=== PATIENT | female | born 1965 | race Caucasian/White ===

== ENCOUNTER → 2018-03-09 | Outpatient (CLI) | payer MEDICARE ==
--- NOTE | 2018-03-09 08:13 | CT ---
EXAMINATION TYPE: CT sinus wo con DATE OF EXAM: 03/09/2018 COMPARISON: CT brain March 12, 2013 HISTORY: Chronic sinusitis per order. Headache with vision changes and change in memory for [address] patient[address] DLP: 609.40 mGycm. Automated Exposure Control for Dose Reduction was Utilized. TECHNIQUE: CT scan of the sinuses is performed without contrast, axial images are obtained, coronal r eformatted images are also reviewed. FINDINGS: There is mild mucosal thickening inferiorly in both maxillary sinuses, right greater than l eft. There is mild mucosal thickening with patchy fluid in the left sphenoid sinus. There is mild muc osal thickening in the bilateral ethmoid sinuses. There is mild mucosal thickening in the bilateral f rontal sinuses. The ostiomeatal complex is patent bilaterally on the coronal images. Nasal septum is deviated to left of midline. The globes are intact bilaterally. Visualized portion of brain parenchyma is unremarkable. Persisten t anterior metopic suture incidentally noted. IMPRESSION: Mild chronic paranasal sinus disease with mild acute patchy left sphenoid sinusitis.
== END | disposition home or self-care (01) ==
LOC: RADCTMAIN 07:06
PROVIDERS: ATTEND Otolaryngology
DX: J32.3 Chronic sphenoidal sinusitis (principal); J32.9 Chronic sinusitis, unspecified
CPT/HCPCS: 70486

== ENCOUNTER → 2018-07-21 | Outpatient (CLI) | payer MEDICARE ==
--- NOTE | 2018-07-21 13:55 | US ---
EXAMINATION TYPE: US abdomen limited DATE OF EXAM: 07/21/2018 COMPARISON: CLINICAL HISTORY: R10.11 rt upper quadrant pain. RUQ pain, NPO EXAM MEASUREMENTS: Liver Length: 14.0 cm Gallbladder Wall: 0.2 cm CBD: 0.5 cm Right Kidney: 11.4 x 4.9 x 5.7 cm Pancreas: Appears echogenic in appearance Liver: wnl Gallbladder: wnl Evidence for sonographic Choudhary's sign: neg CBD: wnl Right Kidney: Medial anechoic lesion at hilum - 1.8 x 1.1 cm IMPRESSION: 1. Right renal cyst.
== END | disposition home or self-care (01) ==
LOC: RADUSWWP 13:21
PROVIDERS: ATTEND Family Medicine
DX: N28.1 Cyst of kidney, acquired (principal)
CPT/HCPCS: 76705

== ENCOUNTER → 2019-01-26 | Outpatient (CLI) | payer MEDICARE ==
--- NOTE | 2019-01-26 16:38 | US ---
EXAMINATION TYPE: US thyroid st tissue head/neck DATE OF EXAM: 01/26/2019 COMPARISON: ultrasound 07/05/2012 CLINICAL HISTORY: E04.2 Nontoxic multinodular goiter. GLAND SIZE: Right Lobe: 4.1 X 1.1 X 1.4 cm Overall Parenchyma: homogenous Left Lobe: 3.9 x 0.8 x 1.4 cm Overall Parenchyma: homogeneous Isthmus Thickness: 0.2 cm NODULES RIGHT: # of nodules measured on right: 4 1. 0.6 X 0.4 x 0.7 cm solid nodule at the ;ower pole with well-defined margins; calcification. Thi s nodule is wider than tall and shows intranodular vascularity. Prior size: 1.0 cm 2. 1.4 X 1.1 x 0.7 cm mixed nodule at the mid pole with well-defined margins; . This nodule is wide r than tall and shows intranodular vascularity. Prior size: 2.1 x 1.0 x 1.9 cm 3. 0.6 X 0.4 x 0.7 cm mixed nodule at the upper pole with well-defined margins; . This nodule is wi molly than tall and shows no intranodular vascularity. Prior size: no prior 4. 0.2 X 0.2 x 0.3 cm mixed nodule at the upper pole with well-defined margins; . This nodule is wi molly than tall and shows no intranodular vascularity. Prior size: no prior LEFT: # of nodules measured on left: 1. 0.6 X 0.6 x 0.3 cm mixed nodule at the lower pole with well-defined margins; . This nodule is w ider than tall and shows no intranodular vascularity. Prior size: no prior 2. 0.5 X 0.3 x 0.2 cm mixed nodule at the upper pole with well defined margins; . This nodule is w ider than tall and shows no intranodular vascularity. Prior size: no prior ISTHMUS: # of nodules measured in the isthmus: 0 Bilateral neck scanned, no evidence of lymphadenopathy. IMPRESSION: Dominant nodule in the right has decreased side, the cystic component has resolved, although a solid formation.
== END | disposition home or self-care (01) ==
LOC: RADUSWWP 14:45
PROVIDERS: ATTEND Family Medicine
DX: E04.2 Nontoxic multinodular goiter (principal)
CPT/HCPCS: 76536

== ENCOUNTER 2019-03-18 10:03 | Emergency (ER) | payer MEDICARE ==
[2019-03-18 10:22] VITALS: RESP 18
[2019-03-18] MEDS ORDERED: SODIUM CHLORIDE 0.9% 1,000 ML IV STA ×2 (10:45)
[2019-03-18] MEDS ORDERED: methylPREDNISolone SOD SUCCI 125 MG/2 ML VIAL IV STA (10:45)
[2019-03-18] MEDS ORDERED: IPRATROPIUM-ALBUTEROL 3 ML NEB INHALATION STA (10:45)
--- NOTE | 2019-03-18 10:49 | ED ---
URI HPI - General Chief Complaint: Upper Respiratory Infection Stated Complaint: chest congestion & leg pain Time Seen by Provider: 03/18/19 10:26 Source: patient, RN notes reviewed, old records reviewed, Caregiver Mode of arrival: ambulatory Limitations: no limitations - History of Present Illness Initial Comments: Patient is a 54-year-old female, she presents today for concern for cough congestion worsening of the past few days. She reports yesterday she started to cough up some bloody sputum. She ALSO COMPLAINS OF SOME HEENT WITHIN HER RIGHT LEG. SHE REPORTS THE PAST MONTH SHE'S BEEN HAVING SHARP SHOOTING PAIN FROM HER BUTTOCKS TO BEHIND HER LOWER LEG. SHE DENIES ANY HISTORY OF BLOOD CLOTS. HISTORY OF INTERMITTENT SMOKING FOR THE PAST FEW MONTHS. - Related Data Home Medications Medication Instructions Recorded Confirmed Celecoxib [CeleBREX] 200 mg PO BID 09/14/13 07/18/14 Cevimeline [Evoxac] 30 mg PO TID 09/14/13 07/18/14 Cyclobenzaprine [Flexeril] 10 mg PO HS 09/14/13 07/18/14 DULoxetine HCL [Cymbalta] 60 mg PO HS 09/14/13 07/18/14 Ergocalciferol [Vitamin D2 1 tab PO DIRECTED 09/14/13 07/18/14 (DRISDOL)] Folic Acid 1 mg PO DAILY 09/14/13 07/18/14 Gabapentin 600 mg PO HS 09/14/13 07/18/14 Gabapentin [Neurontin] 400 mg PO BID 09/14/13 07/18/14 Hydroxychloroquine Sulfate 200 mg PO BID 09/14/13 07/18/14 [Plaquenil] Methotrexate Sodium [Methotrexate] 20 mg PO Q7D 09/14/13 07/18/14 SUMAtriptan SUCCINATE [Imitrex] 100 mg PO DIRECTED PRN 09/14/13 07/18/14 SUMAtriptan SUCCINATE [Sumatriptan 1 dose INJ DAILY PRN 09/14/13 07/18/14 Succinate] Topiramate [Topamax] 100 mg PO BID 09/14/13 07/18/14 cycloSPORINE 0.05% OPHTH SOLN 1 applicator BOTH EYES Q12H 09/14/13 07/18/14 [Restasis 0.05% Ophth Soln] Linaclotide [Linzess] 290 mcg PO DAILY 07/18/14 07/18/14 Previous Rx's Medication Instructions Recorded Albuterol Inhaler [Ventolin Hfa 1 - 2 puff INHALATION RT-Q6H PRN 03/18/19 Inhaler] #1 inhaler Azithromycin [Zithromax Z-pack] 250 mg PO DIRECTED #6 tab 03/18/19 predniSONE 10 mg PO DAILY #15 tab 03/18/19 Allergies Allergy/AdvReac Type Severity Reaction Status Date / Time No Known Allergies Allergy Verified 03/18/19 10:18 Review of Systems ROS Statement: Those systems with pertinent positive or pertinent negative responses have been documented in the HPI. ROS Other: All systems not noted in ROS Statement are negative. Past Medical History Past Medical History: Fibromyalgia, GERD/Reflux, Osteoarthritis (OA) Additional Past Medical History / Comment(s): HX FIBROMYALGIA, SJOGREN'S, MIGRAINES; LUPUS History of Any Multi-Drug Resistant Organisms: None Reported Past Surgical History: Appendectomy, Hysterectomy, Orthopedic Surgery Additional Past Surgical History / Comment(s): CTR-RT WRIST, TUMOR REMOVED RT PARATOID GLAND , Past Anesthesia/Blood Transfusion Reactions: Postoperative Nausea & Vomiting (PONV) Past Psychological History: Depression Smoking Status: Current every day smoker Past Alcohol Use History: None Reported Past Drug Use History: None Reported - Past Family History Sister(s) Family Medical History: Cancer General Exam - General Exam Comments Initial Comments: This is a 54-year-old female. Alert and oriented 3. No significant distress. Limitations: no limitations General appearance: alert, in no apparent distress Head exam: Present: atraumatic, normocephalic, normal inspection Eye exam: Present: normal appearance ENT exam: Present: normal exam, mucous membranes moist Neck exam: Present: normal inspection. Absent: tenderness, meningismus, lymphadenopathy Respiratory exam: Present: wheezes. Absent: normal lung sounds bilaterally, respiratory distress, rales, rhonchi, stridor Cardiovascular Exam: Present: regular rate, normal rhythm, normal heart sounds. Absent: systolic murmur, diastolic murmur, rubs, gallop, clicks Extremities exam: Present: normal inspection, full ROM, normal capillary refill, other (tenderness of R sciatic notch). Absent: tenderness, pedal edema, joint swelling, calf tenderness Back exam: Present: normal inspection Neurological exam: Present: alert, oriented X3, CN II-XII intact Psychiatric exam: Present: normal affect, normal mood Skin exam: Present: warm, dry, intact, normal color. Absent: rash Course Vital Signs 03/18/19 03/18/19 03/18/19 10:18 11:37 11:51 Temperature 97.5 F L Pulse Rate 92 77 84 Respiratory 18 Rate Blood Pressure 127/84 O2 Sat by Pulse 98 Oximetry 03/18/19 12:59 Temperature 98.2 F Pulse Rate 79 Respiratory 18 Rate Blood Pressure 119/93 O2 Sat by Pulse 98 Oximetry Medical Decision Making - Medical Decision Making 54-year-old female presents today for concern for cough congestion. She reports it's been going on for the past week. This time Patient has some wheezing noted. Given DuoNeb treatment Solu-Medrol. She also complains of sciatic-like nerve pain isn't going down her right leg and tenderness over the right sciatic notch for the past week. At this time patient's labs were reviewed and unremarkable. D-dimer is negative. Chest x-ray shows concern for early pneumonia. We'll put the Patient on Rocephin and azithromycin and steroids at this time. Discussed use inhaler. Discussed the importance of smoking cessation for greater than 5 minutes. I discussed that with for patient's chronic back pain going on a firm and she should follow-up with orthopedic back specialist or chills no fall or trauma red flag symptoms or saddle anesthesias. - Lab Data Result diagrams: 03/18/19 11:00 03/18/19 11:00 Lab Results 03/18/19 03/18/19 03/18/19 Range/Units 11:00 11:00 11:00 WBC 6.0 (3.8-10.6) k/uL RBC 4.50 (3.80-5.40) m/uL Hgb 14.2 (11.4-16.0) gm/dL Hct 42.6 (34.0-46.0) % MCV 94.7 (80.0-100.0) fL MCH 31.4 (25.0-35.0) pg MCHC 33.2 (31.0-37.0) g/dL RDW 14.2 (11.5-15.5) % Plt Count 285 (150-450) k/uL Neutrophils % 58 % Lymphocytes % 30 % Monocytes % 5 % Eosinophils % 2 % Basophils % 2 % Neutrophils # 3.5 (1.3-7.7) k/uL Lymphocytes # 1.8 (1.0-4.8) k/uL Monocytes # 0.3 (0-1.0) k/uL Eosinophils # 0.1 (0-0.7) k/uL Basophils # 0.1 (0-0.2) k/uL PT 9.7 (9.0-12.0) sec INR 0.9 (<1.2) APTT 24.9 (22.0-30.0) sec D-Dimer 0.27 (<0.60) mg/L FEU Sodium 143 (137-145) mmol/L Potassium 4.7 (3.5-5.1) mmol/L Chloride 108 H (98-107) mmol/L Carbon Dioxide 25 (22-30) mmol/L Anion Gap 10 mmol/L BUN 17 (7-17) mg/dL Creatinine 0.83 (0.52-1.04) mg/dL Est GFR (CKD-EPI)AfAm >90 (>60 ml/min/1.73 sqM) Est GFR (CKD-EPI)NonAf 80 (>60 ml/min/1.73 sqM) Glucose 85 (74-99) mg/dL Calcium 10.5 H (8.4-10.2) mg/dL Magnesium 2.0 (1.6-2.3) mg/dL Total Bilirubin 0.7 (0.2-1.3) mg/dL AST 33 (14-36) U/L ALT 35 (9-52) U/L Alkaline Phosphatase 84 (38-126) U/L Troponin I (0.000-0.034) ng/mL Total Protein 8.3 H (6.3-8.2) g/dL Albumin 4.7 (3.5-5.0) g/dL Urine Color Urine Appearance (Clear) Urine pH (5.0-8.0) Ur Specific [place] (1.001-1.035) Urine Protein (Negative) Urine Glucose (UA) (Negative) Urine Ketones (Negative) Urine Blood (Negative) Urine Nitrite (Negative) Urine Bilirubin (Negative) Urine Urobilinogen (<2.0) mg/dL Ur Leukocyte Esterase (Negative) 03/18/19 03/18/19 Range/Units 11:00 11:14 WBC (3.8-10.6) k/uL RBC (3.80-5.40) m/uL Hgb (11.4-16.0) gm/dL Hct (34.0-46.0) % MCV (80.0-100.0) fL MCH (25.0-35.0) pg MCHC (31.0-37.0) g/dL RDW (11.5-15.5) % Plt Count (150-450) k/uL Neutrophils % % Lymphocytes % % Monocytes % % Eosinophils % % Basophils % % Neutrophils # (1.3-7.7) k/uL Lymphocytes # (1.0-4.8) k/uL Monocytes # (0-1.0) k/uL Eosinophils # (0-0.7) k/uL Basophils # (0-0.2) k/uL PT (9.0-12.0) sec INR (<1.2) APTT (22.0-30.0) sec D-Dimer (<0.60) mg/L FEU Sodium (137-145) mmol/L Potassium (3.5-5.1) mmol/L Chloride (98-107) mmol/L Carbon Dioxide (22-30) mmol/L Anion Gap mmol/L BUN (7-17) mg/dL Creatinine (0.52-1.04) mg/dL Est GFR (CKD-EPI)AfAm (>60 ml/min/1.73 sqM) Est GFR (CKD-EPI)NonAf (>60 ml/min/1.73 sqM) Glucose (74-99) mg/dL Calcium (8.4-10.2) mg/dL Magnesium (1.6-2.3) mg/dL Total Bilirubin (0.2-1.3) mg/dL AST (14-36) U/L ALT (9-52) U/L Alkaline Phosphatase (38-126) U/L Troponin I <0.012 (0.000-0.034) ng/mL Total Protein (6.3-8.2) g/dL Albumin (3.5-5.0) g/dL Urine Color Yellow Urine Appearance Clear (Clear) Urine pH 7.5 (5.0-8.0) Ur Specific [place] 1.005 (1.001-1.035) Urine Protein Negative (Negative) Urine Glucose (UA) Negative (Negative) Urine Ketones Negative (Negative) Urine Blood Negative (Negative) Urine Nitrite Negative (Negative) Urine Bilirubin Negative (Negative) Urine Urobilinogen <2.0 (<2.0) mg/dL Ur Leukocyte Esterase Negative (Negative) 03/18/19 16:47 EKG performed at 1055 shows normal sinus rhythm, normal EKG. Ventricular rate 77 bpm.. Is 146 most seconds. QRS ration is a 6 ms. QT QTc is 372/427 ms. Disposition Clinical Impression: Pneumonia, Sciatica Disposition: HOME SELF-CARE Condition: Good Instructions (If sedation given, give patient instructions): Community Acquired Pneumonia (ED) Additional Instructions: Please use medication as discussed. Please follow up with family doctor if symptoms have not improved over the next two days. Please return to the emergency room if your symptoms increase or worsen or for any other concerns. Prescriptions: predniSONE 10 mg PO DAILY #15 tab Albuterol Inhaler [Ventolin Hfa Inhaler] 1 - 2 puff INHALATION RT-Q6H PRN #1 inhaler PRN Reason: Shortness Of Breath Azithromycin [Zithromax Z-pack] 250 mg PO DIRECTED #6 tab Is patient prescribed a controlled substance at d/c from ED?: No Referrals: Alesia Parker III, MD [Primary Care Provider] - 1-2 days Missy Maya DO [Doctor of Osteopathic Medicine] - 1-2 days Time of Disposition: 12:35
[2019-03-18 11:21] LABS: Basophils # (A) 0.1 k/uL (0-0.2); Basophils % (A) 2 %; Eosinophils # (A) 0.1 k/uL (0-0.7); Eosinophils % (A) 2 %; HCT 42.6 % (34.0-46.0); HGB 14.2 gm/dL (11.4-16.0); Lymphocytes # (A) 1.8 k/uL (1.0-4.8); Lymphocytes % (A) 30 %; MCH 31.4 pg (25.0-35.0); MCHC 33.2 g/dL (31.0-37.0); MCV 94.7 fL (80.0-100.0); Mean Platelet Volume 7.1; Monocytes # (A) 0.3 k/uL (0-1.0); Monocytes % (A) 5 %; Neutrophils # (A) 3.5 k/uL (1.3-7.7); Neutrophils % (A) 58 %; Platelet Count 285 k/uL (150-450); RDW 14.2 % (11.5-15.5)
[2019-03-18 11:22] LABS: Appearance,Urine Clear (Clear); Bilirubin,Urine Negative (Negative); Blood,Urine Negative (Negative); Color,Urine Yellow; Glucose,Urine (UA) Negative (Negative); Ketones,Urine Negative (Negative); Leukocyte Esterase,Urine Negative (Negative); Nitrite,Urine Negative (Negative); PH, Urine 7.5 (5.0-8.0); Protein,Urine Negative (Negative); Specific Gravity,Urine 1.005 (1.001-1.035); Urobilinogen,Urine <2.0 mg/dL (<2.0)
[2019-03-18 11:31] LABS: ALT 35 U/L (9-52); AST 33 U/L (14-36); African American GFR (CKD) >90 (>60 ml/min/1.73 sqM); Albumin 4.7 g/dL (3.5-5.0); Alkaline Phosphatase 84 U/L (38-126); Anion Gap 10 mmol/L; Blood Urea Nitrogen 17 mg/dL (7-17); Calcium 10.5 mg/dL (8.4-10.2); Carbon Dioxide 25 mmol/L (22-30); Chloride 108 mmol/L (98-107); Glucose 85 mg/dL (74-99); Sodium 143 mmol/L (137-145); Total Bilirubin 0.7 mg/dL (0.2-1.3); Total Protein 8.3 g/dL (6.3-8.2)
--- NOTE | 2019-03-18 11:34 | XR ---
EXAMINATION TYPE: XR chest 2V DATE OF EXAM: 03/18/2019 COMPARISON: NONE HISTORY: Difficulty breathing and hemoptysis TECHNIQUE: Frontal and lateral views of the chest are obtained. FINDINGS: There is a very subtle right infrahilar opacity. No pleural effusion or pneumothorax. The cardiac silhouette size is within normal limits. The osseous structures are intact. IMPRESSION: There is subtle right infrahilar opacity that may represent early developing pneumonia i n this patient with hemoptysis. Atelectasis is an alternative consideration.
[2019-03-18 11:36] LABS: D-Dimer 0.27 mg/L FEU (<0.60); INR 0.9 (<1.2); Partial Thromboplastin Time 24.9 sec (22.0-30.0); Prothrombin Time 9.7 sec (9.0-12.0)
[2019-03-18 11:52] LABS: Potassium 4.7 mmol/L (3.5-5.1)
[2019-03-18] MEDS ORDERED: cefTRIAXone IN SWFI 1,000 MG/10 ML SYRINGE IVP STA (12:03)
[2019-03-18] MEDS ORDERED: AZITHROMYCIN 500 MG TAB PO STA (12:03)
[2019-03-18] MEDS ORDERED: ACET/COD 300 MG/30 MG STARTER PACK 6 TAB BTL PO STA (12:36)
[2019-03-18] MEDS ORDERED: ACETAMINOPHEN TAB 500 MG TAB PO STA (12:55)
[2019-03-18 13:02] VITALS: BP 119/93; PULSE 79; TEMP 98.2
== END 2019-03-18 13:02 | disposition home or self-care (01) ==
LOC: EC 10:03
DX: J18.9 Pneumonia, unspecified organism (principal); M54.31 Sciatica, right side; Z71.6 Tobacco abuse counseling; M79.7 Fibromyalgia; M19.90 Unspecified osteoarthritis, unspecified site; M32.9 Systemic lupus erythematosus, unspecified; M35.00 Sjogren syndrome, unspecified; F32.9 Major depressive disorder, single episode, unspecified; F17.200 Nicotine dependence, unspecified, uncomplicated; Z79.1 Long term (current) use of non-steroidal anti-inflammatories (NSAID); Z79.899 Other long term (current) drug therapy; Z86.69 Personal history of other diseases of the nervous system and sense organs; Z53.8 Procedure and treatment not carried out for other reasons
CPT/HCPCS: 36415; 94640; 93005; 85379; 80053; 83735; 84484; 85025; 85610; 85730; 81003; 71046; 99284; 96374; 96375; 96361; 99406; J2930; J0696

== ENCOUNTER → 2019-04-08 | Outpatient (CLI) | payer MEDICARE ==
--- NOTE | 2019-04-08 11:03 | XR ---
EXAMINATION TYPE: XR chest 2V DATE OF EXAM: 04/08/2019 COMPARISON: 03/18/2019 HISTORY: Bronchopneumonia. Persistent cough. TECHNIQUE: Frontal and lateral views of the chest are obtained. FINDINGS: There is no focal air space opacity, pleural effusion, or pneumothorax seen. Resolved righ t basilar opacity. Pulmonary per inflation with flattening of the diaphragms. The cardiac silhouette size is within normal limits. The osseous structures are intact. IMPRESSION: Resolved right basilar opacity. No focal consolidation. Pulmonary hyperinflation may rel ate to degree of inspiration or underlying COPD.
== END | disposition home or self-care (01) ==
LOC: RADXRMAIN 10:36
PROVIDERS: ATTEND Family Medicine
DX: J98.8 Other specified respiratory disorders (principal)
CPT/HCPCS: 71046